=== PATIENT | female | born 1960 | race Caucasian/White ===

== ENCOUNTER 2017-06-05 21:38 | Emergency (ER) | payer MEDICAID ==
[~2017-06-05] VITALS: Ht 162.6 cm; Wt 70.3 kg
[2017-06-05 21:49] VITALS: Ht 162.6 cm; Wt 70.3 kg
[2017-06-05 23:44] LABS: BASOPHIL % 0.3 % (0-2); PLATELET COUNT 193 x10^3mcL (130-400); RED CELL DISTRIBUTION WIDTH 13.4 % (11.5-14.5)
[2017-06-06 00:01] LABS: CALCIUM 8.5 mg/dL (8.5-10.1); CARBON DIOXIDE 30.1 mmol/L (21-32); CHLORIDE SERUM 103 mmol/L (98-107); CREATININE SERUM 0.6 mg/dL (0.6-1.0); GFR1 > 60 mL/min; GLUCOSE SERUM 105 mg/dL (74-106); POTASSIUM SERUM 3.9 mmol/L (3.5-5.1); SODIUM SERUM 141 mmol/L (136-145)
[2017-06-06 00:13] LABS: ALKALINE PHOSPHATASE 100 U/L (46-116); ALT/SGPT 35 U/L (14-59); AMYLASE 94 U/L (25-115); AST/SGOT 30 U/L (15-37); BILIRUBIN TOTAL 0.1 mg/dL (0.20-1.00); CHOLESTEROL 162 mg/dL (<200); HDL CHOLESTEROL 50 mg/dL (40-60); LIPASE 153 IU/L (73-393); T4(THYROXINE) 8.8 ug/dL (4.7-13.3); TOTAL PROTEIN, SERUM 6.8 g/dL (6.4-8.2)
[2017-06-06 00:14] LABS: ALBUMIN 3.1 g/dL (3.4-5.0)
[2017-06-06 02:04] VITALS: BP 140/84
[2017-06-06 03:52] LABS: UA SPECIFIC GRAVITY 1.015 (1.005-1.035); microscopic required? YES; urine erythrocyte TRACE (NEGATIVE)
[2017-06-06 04:02] LABS: AMPHETAMINE QUAL UR NONE DETECTED (NEG <=1000)
== END 2017-06-06 02:04 | disposition home or self-care (01) ==
LOC: ED 21:38
PROVIDERS: Emergency Medicine
DX: N39.0 Urinary tract infection, site not specified (principal); I10 Essential (primary) hypertension
CPT/HCPCS: 83880; J1885; J2550; J7030; Q0092

== ENCOUNTER 2019-07-17 05:28 | Emergency (ER) | payer MEDICAID ==
[~2019-07-17] VITALS: Ht 157.5 cm; Wt 73.2 kg
[2019-07-17 06:19] LABS: microscopic required? YES; urine erythrocyte 3+ (NEGATIVE)
[2019-07-17 06:49] VITALS: BP 150/88
== END 2019-07-17 06:49 | disposition home or self-care (01) ==
LOC: ED 05:28
PROVIDERS: Emergency Medicine
DX: N10 Acute pyelonephritis (principal); I10 Essential (primary) hypertension
CPT/HCPCS: J0696